=== PATIENT | female | born 1965 | race Caucasian/White ===

== ENCOUNTER 2017-06-28 10:16 | Day surgery (SDC) | payer BC ==
[~2017-06-28 10:16] MED LIST: ACETAMINOPHEN 1,000 MG/100 ML BTL IV ONE
[2017-06-28] MEDS ORDERED: LIDOCAINE 2% MDV (20MG/ML) 20ML VIAL IV ONE (10:17)
[2017-06-28] MEDS ORDERED: ONDANSETRON HCL IV 4 MG/2 ML VIAL IVP ONE (10:17)
[2017-06-28] MEDS ORDERED: KETOROLAC 30 MG/ML VIAL IVP ONE (10:17)
[2017-06-28] MEDS ORDERED: FAMOTIDINE 20MG TABLET PO ONE (10:17)
[2017-06-28] MEDS ORDERED: METOCLOPRAMIDE 10 MG TABLET PO ONE (10:17)
[2017-06-28] MEDS ORDERED: *PACU ONLY* KETAMINE HCL 10 MG/ML (20ML) VIAL IV ONE (10:17)
[2017-06-28] MEDS ORDERED: PROPOFOL 10 MG/ML VIAL IV ONE (10:17)
[2017-06-28] MEDS ORDERED: FENTANYL PF 100MCG/2ML VIAL IV ONE ×2 (10:17)
[2017-06-28] MEDS ORDERED: MECLIZINE 25 MG TABLET PO ONE (10:17)
--- NOTE | 2017-06-29 12:21 | Operative Note ---
DATE OF SURGERY: 06/28/2017 Surgeon: Rubin Ceballos DO Referring physician: Dameon Sams MD PREOPERATIVE DIAGNOSIS: Cubital tunnel syndrome of the right elbow. POSTOPERATIVE DIAGNOSIS: Cubital tunnel syndrome of the right elbow. OPERATION: Submuscular ulnar nerve transposition of the right elbow. Anesthesia: General. PROCEDURE: This 51-year-old female was taken to the operating room and placed in the supine position on the operating room table. A general anesthetic was administered and the right upper extremity was elevated. It was prepped with Hibiclens and draped in the usual sterile fashion. It was exsanguinated and the tourniquet inflated to 250 mmHg. An incision was made along the medial aspect of the elbow, just slightly posterior to the medial epicondyle, dissecting down through the skin and subcutaneous tissue. Hemostasis obtained with the electrocautery. The ulnar nerve easily identified and the aponeurosis was divided and the nerve was freed up to the intramuscular septum with bands of tissue going traversely across the nerve at the proximal edge of the cubital tunnel. We dissected down to the first motor branch and left the nerve in the canal and flexed and extended the elbow. The nerve tended to sublux laterally. We felt that transposition was going to be necessary to stabilize the nerve. She was extremely thin. I did not feel that subcutaneous transposition would be jones. Subsequently, the conjoint tendon was elevated off the medial epicondyle and the septum was divided proximally, then the nerve then would lay down underneath the tendon, with no evidence of impingement. We then drilled 2 holes in the medial epicondyle and then passed the nerve under the conjoint tendon and sutured the conjoint tendon down to the holes in the medial epicondyle with the nerve in the transposed position. These sutures were held securely while we flexed and extended the elbow to make sure that there was no pinching of the ulnar nerve and it moved freely in the transposed position. Subsequently, the sutures were tied and the wound was irrigated with lactated Ringer's solution. We checked again to make sure that there was no impingement of the nerve and subsequently the subcutaneous tissue was closed with 3-0 Vicryl and the skin with a running 4-0 nylon suture. Sterile dressings with plaster splint immobilization was applied with the elbow flexed at 90 and the forearm in neutral position. The patient was taken to the recovery room in satisfactory condition. GROSS PATHOLOGY: This patient had constriction of the ulnar nerve in the cubital tunnel as described and was transposed in a submuscular position with satisfactory position alignment of the transposition. HARPER
== END 2017-06-28 13:50 | disposition home or self-care (01) ==
LOC: SUR 10:16
PROVIDERS: ATTEND Orthopaedic Surgery
DX: G56.21 Lesion of ulnar nerve, right upper limb (principal); E03.9 Hypothyroidism, unspecified; F41.8 Other specified anxiety disorders
CPT/HCPCS: 64718; 01710; J1885; J2405; J3010